=== PATIENT | male | born 1960 | race Caucasian/White ===

== ENCOUNTER 2019-04-21 06:55 | Day surgery (SDC) | payer BC, OTHER ==
--- OUTSIDE RECORDS SUMMARY | 2019-04-18 07:41 | XMSREPORT | Referral Summary ---
:1960 Author Organization [facility] Address [address] [address] Care Team Providers Name Role Phone Emeterio Chu MD Primary Care Provider Reason for Referral Surgery (Routine) Status Reason Specialty Diagnoses / Referred By Referred To Procedures Contact Contact New Request Prior Auth Before Diagnoses Colon cancer screening Romeo Chu MD [address] [place] [address] [place] [id number] Office Visit (Routine) Status Reason Specialty Diagnoses / Referred By Referred To Procedures Contact Contact Authorized Diagnoses Colon cancer screening Emeterio Chu DL [facility] MD [facility] [place] [phone] Phone: Reason for Visit Reason Comments Physical High Blood Pressure Encounter Details Date Type Department Care Team Description 04/08/2019 Office Visit Emeterio Alonso, [facility] health care (Primary Dx); [facility] Colon cancer screening; [facility] [address] [facility] Chronic fatigue; [address] [facility] Elevated blood pressure reading; [place] [address] Need for prophylactic vaccination against viral disease [id number] Allergies No Known Allergiesdocumented as of this encounter (statuses as of 04/08/2019) Medications Medication Sig Dispensed Refills Start Date End Date Status SILDENAFIL CITRATE OR Take by mouth 0 Active three times a day. triamcinolone Apply topically 15 g 2 01/15/2019 Active acetonide 0.5 % at bedtime. Apply ointment to fingers and cover with bandaid. lisinopril (PRINIVIL, Take 1 Tab by 90 Tab 3 04/08/2019 Active ZESTRIL) 20 MG tablet mouth one time a day. documented as of this encounter (statuses as of 04/08/2019) Active Problems Problem Noted Date Basal cell carcinoma 06/10/2015 documented as of this encounter (statuses as of 04/08/2019) Immunizations Name Administration Dates Next Due Influenza Quad Preservative Free 02/16/2015 Tdap >7 years 06/12/2016 Zoster Shingrix 2 Dose (Shingles) 04/08/2019 documented as of this encounter Social History Tobacco Use Types Packs/Day Years Used Date Never Smoker Smokeless Tobacco: Never Used Alcohol Use Drinks/Week oz/Week Comments Yes very rare Sex Assigned at Date Recorded Not on file Job Start Date Occupation Industry Not on file Not on file Not on file Travel History Travel Start Travel End No recent travel history available. documented as of this encounter Last Filed Vital Signs Vital Sign Reading Time Taken Comments Blood Pressure 146/100 04/08/2019 11:21 AM [employer] Pulse 77 04/08/2019 11:21 AM [employer] Temperature 36.2 C (97.2 F) 04/08/2019 11:21 AM [employer] Respiratory Rate 16 04/08/2019 11:21 AM [employer] Oxygen Saturation 97% 04/08/2019 11:21 AM [employer] Inhaled Oxygen Concentration - - Weight 88.4 kg (194 lb 14.2 04/08/2019 11:21 AM oz) [employer] Height 182.9 cm (6') 04/08/2019 11:21 AM taken 04/08/2019 [employer] Body Mass Index 26.43 04/08/2019 11:21 AM [employer] documented in this encounter Progress Notes Emeterio Chu MD - 04/08/2019 11:20 AM [employer] Weight Management / BMI follow-up plan: Dietary surveillance and counseling. Weight Management / BMI follow-up plan: Exercise counseling documented in this encounter Plan of Treatment Date Type Specialty Care Team Description 01/21/2020 Appointment Dermatology Rosi Santiago DO [address] [place] [address] [phone] Name Type Priority Associated Diagnoses Date/Time HEMOGRAM Lab Routine Colon cancer screening 04/08/2019 12:06 PM Chronic fatigue [employer] Elevated blood pressure reading THYROID STIMULATING Lab Routine Colon cancer screening 04/08/2019 12:06 PM HORMONE Chronic fatigue [employer] Elevated blood pressure reading COMPREHENSIVE METABOLIC Lab Routine Colon cancer screening 04/08/2019 12:06 PM PANEL Chronic fatigue [employer] Elevated blood pressure reading LIPID PANEL Lab Routine Colon cancer screening 04/08/2019 12:06 PM Chronic fatigue [employer] Elevated blood pressure reading Name Type Priority Associated Diagnoses Order Schedule HEMOGRAM Lab Routine Colon cancer screening Expected: 04/08/2019, Chronic fatigue Expires: 06/09/2019 Elevated blood pressure reading THYROID STIMULATING HORMONE Lab Routine Colon cancer screening Expected: 04/08/2019 Chronic fatigue (Approximate), Elevated blood pressure Expires: 06/09/2019 reading COMPREHENSIVE METABOLIC Lab Routine Colon cancer screening Expected: 04/08/2019 PANEL Chronic fatigue (Approximate), Elevated blood pressure Expires: 06/09/2019 reading LIPID PANEL Lab Routine Colon cancer screening Expected: 04/08/2019, Chronic fatigue Expires: 04/22/2019 Elevated blood pressure reading Name Type Priority Associated Diagnoses Order Schedule SCHEDULE ENDOSCOPY REFERRAL Routine Colon cancer screening Ordered: 2018 [facility] [place] documented as of this encounter Visit Diagnoses Diagnosis Preventative health care - Primary Routine general medical examination at a health care facility Colon cancer screening Special screening for malignant neoplasms, colon Chronic fatigue Other malaise and fatigue Elevated blood pressure reading Elevated blood pressure reading without diagnosis of hypertension Need for prophylactic vaccination against viral disease Need for prophylactic vaccination and inoculation against other viral diseases documented in this encounter Insurance Payer Benefit Plan / Subscriber ID Effective Dates Phone Address Type Group [employer] CHOICE xxxxxxxxx 2018-Present [employer] Name Account Type Relation to Date of Phone Billing Patient Address Benito Pak Personal/Family 1960 [phone] (Home) [address] [place] (Work) [id number] documented as of this encounter
[~2019-04-21 06:55] MED LIST: Dextrose 5%-Lactated Ringers 1,000 ML IV SCH
[2019-04-21] MEDS ORDERED: Dextrose 5%-Lactated Ringers 1,000 ML IV SCH (07:00)
[2019-04-21] MEDS ORDERED: fentaNYL 100 MCG/2 ML SDV ONE (09:48)
[2019-04-21] MEDS ORDERED: Midazolam 1 MG/ML 2 ML SDV ONE (09:48)
[2019-04-21] MEDS ORDERED: Propofol 200 MG/20 ML SDV ONE (09:48)
--- NOTE | 2019-04-24 15:45 | OR ---
DATE OF PROCEDURE: 04/21/2019 SURGEON: Richmond Barrera MD PREOPERATIVE DIAGNOSIS: Indication for screening colonoscopy. POSTOPERATIVE DIAGNOSIS: Indication for screening colonoscopy. INDICATIONS: This is a 58-year-old presenting for a screening colonoscopy. He has had previous colonoscopies. He does have a family history of his father having colon carcinoma. The plan is to proceed with a flexible colonoscopy with biopsies and/or polypectomy as indicated. Potential risks including bleeding and perforation were discussed, and the patient wishes to proceed. DETAILS OF PROCEDURE: The patient was taken to the operating room and placed in a left lateral decubitus position. IV sedation was administered, after which the initial digital rectal exam was performed and was unremarkable. Colonoscope was then passed into the rectum with retroflexion revealing uncomplicated hemorrhoidal columns, polyps. Scope was then passed to the level of the cecum. The prep was quite good with only a small amount of liquid stool present. To that level, there were no diverticula or areas of colitis. In the rectum, there were 3 small polyps. One was in the upper rectum at 17 cm from the dentate line, one in the mid rectum around 10 cm, and then a very tiny one in the lower most rectum just above the dentate line. The upper 2 polyps were then separately excised by means of a cautery snare technique and sent separately for pathologic evaluation. The lower rectal polyp was quite small and this was excised by means of simple biopsy forceps, and this was also sent for histologic evaluation. At this point, good hemostasis was noted, and no additional problems were noted. The patient was taken to the recovery room in satisfactory condition. Assuming that one or more of these polyps are adenomatous but not malignant, we will contact the patient and he should probably undergo a repeat colonoscopy in 2 to 3 years. Now that he has polyps, he will be on a 5-year schedule which he would have been otherwise because of the family history of the colon carcinoma. Richmond Barrera MD /[id number]
== END 2019-04-21 11:47 | disposition home or self-care (01) ==
LOC: JP.SDS 06:55
PROVIDERS: ATTEND Surgery
DX: Z12.11 Encounter for screening for malignant neoplasm of colon (principal); D12.7 Benign neoplasm of rectosigmoid junction; K62.1 Rectal polyp; K64.9 Unspecified hemorrhoids; I10 Essential (primary) hypertension; Z80.0 Family history of malignant neoplasm of digestive organs
CPT/HCPCS: 88305; J2250; J2704; J3010; J7121

== ENCOUNTER 2021-04-22 08:05 | Day surgery (SDC) | payer OTHER ==
[2021-04-22] MEDS ORDERED: Dextrose 5%-Lactated Ringers 1,000 ML IV SCH (08:45)
[2021-04-22] MEDS ORDERED: fentaNYL 100 MCG/2 ML SDV ONE (08:45)
[2021-04-22] MEDS ORDERED: Propofol 200 MG/20 ML SDV ONE (08:45)
[2021-04-22] MEDS ORDERED: Midazolam 1 MG/ML 2 ML SDV ONE (08:45)
--- NOTE | 2021-04-24 11:39 | OR ---
DATE OF PROCEDURE: 04/22/2021 SURGEON: Richmond Barrera MD PREOPERATIVE DIAGNOSES: 1. History of colon polyps. 2. Right-sided upper abdominal pain. POSTOPERATIVE DIAGNOSES: 1. Upper endoscopy showing mild antral gastritis and moderate proximal duodenitis. 2. Normal colonoscopy with no recurrence of polyp formation. PROCEDURE: 1. Esophagogastroduodenoscopy with antral biopsies for CLOtest. 2. Flexible colonoscopy. ANESTHESIA: IV sedation. INDICATION FOR PROCEDURE: A 60-year-old male presenting for followup colonoscopy. He did have colon polyps on most recent colonoscopy. The patient also complains of some abdominal pain that is located slightly right and superior to the umbilicus, thinking this may end up being more musculoskeletal type pain. No hernia could be identified in that area or in the periumbilical area per se. The plan is to proceed with upper and lower endoscopy with biopsies and/or polypectomy as indicated. Potential risks including bleeding and perforation were discussed, and the patient wishes to proceed. DETAILS OF PROCEDURE: The patient was taken to the operating room and placed in a left lateral decubitus position. Upper GI endoscope was passed orally through the length of esophagus into the stomach with retroflexion view of the fundus, thereafter through the pyloric channel into the junction of the 3rd and 4th duodenum. Findings included normal hypopharynx, larynx, upper esophageal sphincter, esophageal body, and EG junction. No significant hiatal hernia was present. Within the stomach, there was small retained bile. In the antrum, there was mild antral gastritis with this being somewhat vaguely reddened and edematous. The duodenal bulb had a little bit more inflammation, this being somewhat more reddened and edematous. No erosions or ulcers were seen in either location, and beyond the duodenal bulb, the findings normalized. Biopsies were then obtained from the antrum and sent for CLOtest for H pylori. Minimal bleeding from the biopsy site was seen. The upper endoscopy then completed. Attention was taken to the colonoscopy. Initial digital rectal exam was performed and was unremarkable. Colonoscope was passed into the rectum with retroflexion revealing uncomplicated hemorrhoidal columns. Scope was eventually passed to the level of the cecum. The prep was fairly good with only small amount of liquid stool being present. To that level, the patient had no abnormal findings. There were no recurrent polyps or other signs of neoplasia. No diverticula or areas of colitis. The scope was then withdrawn with the above findings reconfirmed, and the procedure then concluded. Plan will be to recommend repeating colonoscopy in 5 years. He will be set up to see Dr. Chu in 3 to 4 weeks. We will start the patient Protonix, but my thinking is that this may not be helpful with his symptoms, and in that case, he probably will go off it. We will contact the patient should CLOtest be positive. Richmond Barrera MD /[id number]
== END 2021-04-22 13:15 | disposition home or self-care (01) ==
LOC: JP.SDS 08:05
PROVIDERS: ATTEND Surgery
DX: Z12.11 Encounter for screening for malignant neoplasm of colon (principal); K29.60 Other gastritis without bleeding; K29.90 Gastroduodenitis, unspecified, without bleeding; K64.9 Unspecified hemorrhoids; I10 Essential (primary) hypertension; Z86.010 Personal history of colon polyps; Z80.0 Family history of malignant neoplasm of digestive organs; Z79.899 Other long term (current) drug therapy
CPT/HCPCS: 43239; 45378; 87081; J2250; J2704; J3010; J7121